=== PATIENT | female | born 1975 | race African-American/Black ===

== ENCOUNTER 2018-06-18 20:45 | Emergency (ER) | payer OTHER ==
--- NOTE | 2018-06-18 20:54 | EDPHY ---
H & P Time Seen by Provider: 06/18/18 20:50 HPI/ROS: Chief complaint: Headache, dry cough, body aches with subjective fever. Requests epinephrine spray HPI: This is a 42-year-old female whose had her share of Ear Nose and Throat problems. She describes having problems as teenager were tonsils gets so swollen that would touch. It was not until she arrived denies states that she was recommended to have a tonsillectomy. She noted marked improvement upon that result. In the last few years she was recently having more more problems with episodic URIs. She somehow a quite seen her Ear Nose and Throat doctor back in [place], having in epinephrine and lidocaine spray as part of a protocol for laryngoscopy and then feeling better and resolving symptoms. That is what she is looking for today. Her symptoms this illness began 2 days ago on June 15. At that time she began with sense of body aches with moderate fever though it was strictly subjective in nature having her to put on a winter coat as well as sense of chilling and dry cough and diffuse headache. She has had no known exposure to influenza. She does have a 5-year-old in the household however this 5-year-old is feeling just fine. She notes 2 days ago she felt little dryness in her throat and was quite worse that afternoon whereby she developed the cough that she was dry as well as diffuse body aches and headache. It was the next day, Friday, the when she developed a sense of subjective fever. She was seen today by Ear Nose and Throat. This was a none scheduled visit as she called and was able to get in. They had a laryngoscopy performed using Afrin and lidocaine. She did not notice the relief with the Afrin as she typically gets with the epinephrine as noted above. She was then treated with Solu-Medrol Dosepak. Further, she is worried about her job. She has already had missed 2 days and she just started this job. She would like to have something with her power dramatically so she could continue work. Of note is that she was no antecedent URI last week nor symptoms of allergy such as itchy eyes and sneezing in problems in the throat. ROS: Constitutional - subjective fever Eyes - no discharge, or injection ENT - no earache, change in hearing, difficulty swallowing. Respiratory - No Shortness of breath, phlegm, wheezing or pleuritic chest pain. The cough is dry. Musculoskeletal - no joint or muscle pain. Integument - no rashes. Neurological - No focal motor weakness. Immunological - no swelling or lymphadenopathy 10 point ROS otherwise negative Physical Exam: Gen: Well developed, well nourished. Nontoxic. afebrile VSS HEENT: Normocephalic. Ears: TMs are clear. Hearing normal. Eyes: PERRL. No conjunctival injection or pallor. no jaundice. Nose: No nasal discharge. Minimal sense to be pressure over the maxillary sinuses. None over the frontal sinuses. Symptoms were little worse when she leaned forward Throat: Membranes are moist. Oropharynx is without erythema or exudate. Normal phonation. Neck: Trachea is in the ML. No laryngeal tenderness. No adenopathy Lungs: Good air entry into both lungs. No rales rhonchi or wheezes. No air hunger. No respiratory distress. Skin: Good color, without pallor. There is no diaphoresis. Skin is warm and dry , without diaphoresis. Intact without rashes Constitutional: Initial Vital Signs Temperature (C) 36.6 C 06/18/18 21:03 Heart Rate 82 06/18/18 21:03 Respiratory Rate 16 06/18/18 21:03 Blood Pressure 125/82 H 06/18/18 21:03 O2 Sat (%) 99 06/18/18 21:03 O2 Delivery Mode Room Air Allergies/Adverse Reactions: No Known Allergies Allergy (Unverified 06/18/18 21:39) Home Medications: Medication Instructions Recorded Doxycycline 100 mg Prepack#2 1 btl TAKEHOME EDNOW 1 Days #2 btl 06/18/18 [Vibramycin 100 mg Prepack#2] Doxycycline Monohydrate 100 mg PO BID #12 capsule 06/18/18 FLUoxetine [Prozac 10 MG (*)] 06/18/18 Spironolactone 06/18/18 Medical Decision Making - Diagnostics Imaging Results: Imaging Impressions Chest X-Ray 06/18/18 21:24 Impression: Mild peribronchial thickening suggestive of bronchitis, no consolidative airspace opacity is seen to suggest pneumonia.. ED Course/Re-evaluation: I think Derian would be perfectly okay for her. However she might be a candidate for Rd-Synephrine as it is does more frequently thereby giving her somewhat of a sense of immediasy in addressing her needs. We agreed to a testing protocol including influenza and chest x-ray. Chest x-ray as read by the radiologist shows some suspicion for bronchial are disease. My interpretation that might well be an early right lower lobe infiltrate. Influenza testing was negative Differential Diagnosis: Diagnostic considerations include, but are not limited to, the following: URI, sinusitis, pharyngitis, otitis media, pneumonia, allergy, influenza, strep throat. - Data Points Point of Care Test Results: Influenza PCR Flu Nasal Swab Collection Date 06/18/18 Flu Nasal Swab Collection Time 22:15 Influenza A Result Not Detected Influenza B Result Not Detected Departure - Departure Disposition: Home, Routine, Self-Care Clinical Impression: Early Pneumonia Acute bronchitis Qualifiers: Bronchitis organism: unspecified organism Qualified Code(s): J20.9 - Acute bronchitis, unspecified Condition: Good Instructions: Acute Bronchitis (ED) Additional Instructions: Us the NEOSYNEPHRINE to help open your nasal passages, 4 times a day as needed. No need to take the SOLUMEDROL Doxycycline Rx. Prescriptions: Doxycycline 100 mg Prepack#2 [Vibramycin 100 mg Prepack#2] 1 btl TAKEHOME EDNOW 1 Days #2 btl Doxycycline Monohydrate 100 mg PO BID #12 capsule
[2018-06-18] MEDS ORDERED: PHENYLEPHRINE 0.5% NASAL 15 ML SPRAY EACHNARE PRN (22:57)
[2018-06-18] MEDS ORDERED: DOXYCYCLINE 100 MG PREPACK#2 BTL TAKEHOME ONE ×2 (23:10)
[2018-06-18 23:29] VITALS: BP 129/65
== END 2018-06-18 23:23 | disposition home or self-care (01) ==
LOC: CED 20:45
DX: J20.9 Acute bronchitis, unspecified (principal)
CPT/HCPCS: 71046-PO